=== PATIENT | male | born 1975 | race Caucasian/White ===

== ENCOUNTER 2021-05-07 10:02 | Emergency (ER) | payer BC ==
--- NOTE | 2021-05-07 13:55 | RAD REPORT ---
EXAM DESCRIPTION: CT - Head Brain Wo Cont - 05/07/2021 1:41 pm CLINICAL HISTORY: Fever;Headache COMPARISON: No comparisons TECHNIQUE: Axial 5 mm thick images of the head were obtained without IV contrast. All CT scans are performed using dose optimization technique as appropriate and may include automated exposure control or mA/KV adjustment according to patient size. FINDINGS: No intracranial hemorrhage, mass, edema or shift of mid-line structures. No acute infarcti on changes seen. No abnormal extra-axial fluid collections. Ventricles are normal. Mastoid air cells and visualized portions of the paranasal sinuses are clear. No acute bony findings. IMPRESSION: Negative non-contrast CT head examination.
[2021-05-07 14:10] LABS: Absolute Lymphocytes (CBC) 1.8 K/uL (0.7-4.9); Basophils % 0.2 % (0-1.3); Hematocrit 40.9 % (39.6-49.0); Lymphocytes % 15.9 % (15.3-44.8); MPV 7.5 fL (7.6-11.3); RBC Red Blood Cell Count 4.56 M/uL (4.33-5.43)
[2021-05-07 14:19] LABS: Urine Blood Negative (Negative); Urine Glucose Negative (Negative); Urine Protein Negative (Negative); Urine Specific Gravity 1.025 (1.005-1.030)
[2021-05-07 14:25] LABS: BUN Blood Urea Nitrogen 11 mg/dL (7-18); Bicarbonate 29 mmol/L (21-32); Glucose Level 93 mg/dL (74-106); Potassium 4.1 mmol/L (3.5-5.1); Sodium Level 136 mmol/L (136-145)
[2021-05-07] MEDS ORDERED: NA CHLORIDE 0.9% 1,000 ML ONE (14:25)
[2021-05-07] MEDS ORDERED: METOCLOPRAMIDE 10 MG/2mL INJ ONE (14:25)
[2021-05-07] MEDS ORDERED: DIPHENHYDRAMINE 50 MG/ML VIAL ONE (14:25)
--- NOTE | 2021-05-07 15:10 | EDPHYS ---
Physician Documentation [facility] Name: Huseyin Mejia Age: 45 yrs Sex: Male : 1975 Arrival Date: 05/07/2021 Time: 10:05 Bed 14 Private MD: ED Physician Lavon Agosto HPI: 05/07 14:08 This 45 yrs old Male presents to ER via Ambulatory with complaints of jr8 Headache. 14:08 Onset: The symptoms/episode began/occurred gradually, 1 week(s) ago. Associated signs jr8 and symptoms: Pertinent positives: fever. Severity of symptoms: At its worst the pain was moderate, in the emergency department the pain is unchanged. Headache History: Denies prior headaches. The patient has not experienced similar symptoms in the past. The patient has been recently seen by a physician:. This is a 45-year-old male patient that presented to the emergency room today after being seen by [place] emergency room and primary care over the past week. Patient had Covid test complete amongst flu and strep. All 3 were noted to be negative. Had blood work yesterday which showed mild elevation in white cell count. Still pending a mono spot test. Patient has continued fevers and headache that is not going away. Primary care physician at that time referred patient to emergency room for further evaluation.. Historical: - Allergies: 10:41 No Known Allergies; ca1 - Home Meds: 10:41 None [Active]; ca1 - PMHx: 10:41 None; ca1 - PSHx: 10:41 None; ca1 - Immunization history:: Client reports receiving the 2nd dose of the Covid vaccine, Client reports receiving the 1st dose of the Covid vaccine. - Social history:: Smoking status: Reported history of juuling and/or vaping. ROS: 14:08 Eyes: Negative for injury, pain, redness, and discharge, ENT: Negative for injury, jr8 pain, and discharge, Neck: Negative for injury, pain, and swelling, Cardiovascular: Negative for chest pain, palpitations, and edema, Respiratory: Negative for shortness of breath, cough, wheezing, and pleuritic chest pain, Abdomen/GI: Negative for abdominal pain, nausea, vomiting, diarrhea, and constipation, Back: Negative for injury and pain, MS/Extremity: Negative for injury and deformity, Skin: Negative for injury, rash, and discoloration. 14:08 Constitutional: Positive for fever. 14:08 Neuro: Positive for headache. Exam: 14:08 Constitutional: This is a well developed, well nourished patient who is awake, alert, jr8 and in no acute distress. Eyes: Pupils equal round and reactive to light, extra-ocular motions intact. Lids and lashes normal. Conjunctiva and sclera are non-icteric and not injected. Cornea within normal limits. Periorbital areas with no swelling, redness, or edema. ENT: Nares patent. No nasal discharge, no septal abnormalities noted. Tympanic membranes are normal and external auditory canals are clear. Oropharynx with no redness, swelling, or masses, exudates, or evidence of obstruction, uvula midline. Mucous membranes moist. Neck: Trachea midline, no thyromegaly or masses palpated, and no cervical lymphadenopathy. Supple, full range of motion without nuchal rigidity, or vertebral point tenderness. No Meningismus. Cardiovascular: Regular rate and rhythm with a normal S1 and S2. No gallops, murmurs, or rubs. Normal PMI, no JVD. No pulse deficits. Respiratory: Lungs have equal breath sounds bilaterally, clear to auscultation and percussion. No rales, rhonchi or wheezes noted. No increased work of breathing, no retractions or nasal flaring. Abdomen/GI: Soft, non-tender, with normal bowel sounds. No distension or tympany. No guarding or rebound. No evidence of tenderness throughout. Back: No spinal tenderness. No costovertebral tenderness. Full range of motion. Skin: Warm, dry with normal turgor. Normal color with no rashes, no lesions, and no evidence of cellulitis. MS/ Extremity: Pulses equal, no cyanosis. Neurovascular intact. Full, normal range of motion. Neuro: Awake and alert, GCS 15, oriented to person, place, time, and situation. Cranial nerves II-XII grossly intact. Motor strength 5/5 in all extremities. Sensory grossly intact. Cerebellar exam normal. Normal gait. Vital Signs: 10:37 BP 133 / 75; Pulse 75; Resp 18 S; Temp 98.8(TE); Pulse Ox 97% on R/A; Weight 99.79 kg ca1 (R); Height 6 ft. 2 in. (187.96 cm) (R); Pain 10/10; 10:37 Body Mass Index 28.25 (99.79 kg, 187.96 cm) ca1 MDM: 12:54 Patient medically screened. [facility] 15:04 Data reviewed: vital signs, nurses notes, lab test result(s), radiologic studies, CT jr scan. Data interpreted: Pulse oximetry: on room air is 97 %. Interpretation: normal. Counseling: I had a detailed discussion with the patient and/or guardian regarding: the historical points, exam findings, and any diagnostic results supporting the discharge/admit diagnosis, lab results, radiology results, the need for outpatient follow up, a family practitioner, to return to the emergency department if symptoms worsen or persist or if there are any questions or concerns that arise at home. Response to treatment: the patient's symptoms have mildly improved after treatment, patient is well hydrated. ED course: Jennifer with patient that he has mononucleosis. That for some time he could continue to feel fatigued and may have on and off fevers. Needs to hydrate and rest at home. No activities that could injure his abdomen. The headaches that he has been experiencing may or may not come back. He is to follow-up with family practice. If he feels like he is getting worse come back to the ER for further evaluation. Patient and significant other happy with plan.. 05/07 13:25 Order name: CBC with Diff; Complete Time: 14:17 [facility] 05/07 13:25 Order name: Basic Metabolic Panel; Complete Time: 14:30 [facility] 05/07 13:25 Order name: [place] Screen Profile; Complete Time: 15:04 [facility] 05/07 14:19 Order name: Urine Dipstick-Ancillary; Complete Time: 14:30 [facility] 05/07 15:17 Order name: SARS-COV-2 RT PCR; Complete Time: 15:19 [facility] 05/07 13:25 Order name: IV; Complete Time: 13:53 [facility] 05/07 13:25 Order name: CT Head Brain wo Cont; Complete Time: 14:07 [facility] Administered Medications: 14:11 Drug: NS 0.9% 1000 ml Route: IV; Rate: 1000 ml; Site: right antecubital; ss 15:30 Follow up: IV Status: Completed infusion; IV Intake: 1000ml ss 14:11 Drug: Reglan (metoCLOPramide) 10 mg Route: IVP; Site: right antecubital; ss 15:04 Follow up: Response: No adverse reaction ss 14:11 Drug: Benadryl (diphenhydrAMINE) 25 mg Route: IVP; Site: right antecubital; ss 15:04 Follow up: Response: No adverse reaction; No change in condition ss 15:03 Drug: Ketorolac 30 mg Route: IVP; Site: right antecubital; ss 15:33 Follow up: Response: No adverse reaction; No change in condition ss 15:41 Drug: Dilaudid (HYDROmorphone) 1 mg Route: IVP; Site: right antecubital; ss 15:41 Follow up: Response: Pain is decreased; Pain is decreased, pt reports instant relief ss now 1/10 on pain scale. Disposition: 16:18 Co-signature as Attending Physician, Lavon Agosto MD I agree with the assessment and kdr plan of care. Disposition Summary: 05/07/21 15:09 Discharge Ordered Location: Home jr Problem: new jr8 Symptoms: have improved jr8 Condition: Stable jr8 Diagnosis - Infectious mononucleosis, unspecified without complication jr8 Followup: jr8 - With: Private Physician - When: 5 - 6 days - Reason: Recheck today's complaints, Continuance of care, Re-evaluation by your physician Discharge Instructions: - Discharge Summary Sheet jr8 - Infectious Mononucleosis jr8 Forms: - Medication Reconciliation Form jr8 - Thank You Letter jr8 - Antibiotic Education jr8 - Prescription Opioid Use jr8 Prescriptions: - Fioricet 50-300-40 mg Oral capsule - take 2 capsule by ORAL route every 4 hours; 20 capsule; Refills: 0, Product jr8 Selection Permitted Signatures: Dispatcher [employer] EDGA Lavon Agosto MD MD [facility] Yary Kent RN RN Benny Luna PA PA jr8 Antonia Owen RN RN ca1 Corrections: (The following items were deleted from the chart) 14:19 13:25 CORONAVIRUS+ ordered. EDGA EDMS
--- NOTE | 2021-05-07 15:10 | ER ---
Nurse's Notes [facility] Name: Huseyin Mejia Age: 45 yrs Sex: Male : 1975 Arrival Date: 05/07/2021 Time: 10:05 Bed 14 Private MD: Diagnosis: Infectious mononucleosis, unspecified without complication Presentation: 05/07 10:37 Chief complaint: Spouse and/or significant other states: headache, pain on R side of ca1 face and fever x 1 week. Sent by our doctor for MRI of the head. CT scan of the head was negative and WBC elevated at 12.5. Strep, Flu and Covid were negative, tests done yesterday 05/08/2021. Was given Tramadol for the headache, no relief. Tramadol taken last at 0800 today. Coronavirus screen: Client denies travel out of the [place] in the last 14 days. The client reports previous COVID testing was negative. Date of collection: May 06, 2021. Ebola Screen: Patient negative for fever greater than or equal to 101.5 degrees Fahrenheit, and additional compatible Ebola Virus Disease symptoms Patient denies exposure to infectious person. Patient denies travel to an Ebola-affected area in the 21 days before illness onset. No symptoms or risks identified at this time. Initial Sepsis Screen: Does the patient meet any 2 criteria? No. Patient's initial sepsis screen is negative. Does the patient have a suspected source of infection? No. Patient's initial sepsis screen is negative. Risk Assessment: Do you want to hurt yourself or someone else? Patient reports no desire to harm self or others. Onset of symptoms was May 01, 2021. 10:37 Method Of Arrival: Ambulatory ca1 10:37 Acuity: MIKE 3 ca1 Historical: - Allergies: 10:41 No Known Allergies; ca1 - Home Meds: 10:41 None [Active]; ca1 - PMHx: 10:41 None; ca1 - PSHx: 10:41 None; ca1 - Immunization history:: Client reports receiving the 2nd dose of the Covid vaccine, Client reports receiving the 1st dose of the Covid vaccine. - Social history:: Smoking status: Reported history of juuling and/or vaping. Screenin:05 Abuse screen: Denies threats or abuse. Denies injuries from another. Nutritional ss screening: No deficits noted. Tuberculosis screening: Never had TB. Fall Risk None identified. Assessment: 12:49 General: Appears in no apparent distress. comfortable, Behavior is calm, cooperative. ss Pain: Complains of pain in headache "moves around" Pain currently is 10 out of 10 on a pain scale. Neuro: Level of Consciousness is awake, alert, obeys commands, Oriented to person, place, time, situation, Candy Decorator are equal bilaterally Moves all extremities. Full function Speech is normal, Facial symmetry appears normal, Pupils are PERRLA. Cardiovascular: Capillary refill < 3 seconds is brisk in bilateral. Respiratory: Airway is patent Respiratory effort is even, unlabored, Respiratory pattern is regular, symmetrical. GI: Patient currently denies diarrhea, vomiting. EENT: Nares are clear Oral mucosa is moist. Derm: Skin is intact, is healthy with good turgor, Skin is dry, Skin is pink, warm \\T\\ dry. normal. Musculoskeletal: Circulation, motion, and sensation intact. Range of motion: intact in all extremities, Swelling absent. 15:04 Reassessment: Patient appears in no apparent distress at this time. AGAPITO Zapata at bedside ss updating patient on results and plan of care. Toradol given as ordered as patient denies any improvement in pain. 15:34 Reassessment: No changes from previously documented assessment. AGAPITO Zapata notified that ss pain is unchanged. Dilaudid 1 mg IVP ordered. 15:41 Reassessment: Patient appears in no apparent distress at this time. Patient and/or ss family updated on plan of care and expected duration. Pain level reassessed. Patient is alert, oriented x 3, equal unlabored respirations, skin warm/dry/pink. Pt reports instant relief after Dilaudid administration. Patient states feeling better. Patient states symptoms have improved. Vital Signs: 10:37 BP 133 / 75; Pulse 75; Resp 18 S; Temp 98.8(TE); Pulse Ox 97% on R/A; Weight 99.79 kg ca1 (R); Height 6 ft. 2 in. (187.96 cm) (R); Pain 10/10; 10:37 Body Mass Index 28.25 (99.79 kg, 187.96 cm) ca1 ED Course: 10:05 Patient arrived in ED. mr 10:41 Triage completed. ca1 10:41 Arm band placed on right wrist. ca1 12:54 Roszak, Benny, PA is PHCP. jr8 12:54 Lavon Agosto MD is Attending Physician. jr8 13:27 Yary Kent, JASSI is Primary Nurse. ss 13:41 CT Head Brain wo Cont In Process Unspecified. EDMS 13:53 Inserted saline lock: 20 gauge in right antecubital area, using aseptic technique. ss Blood collected. 15:05 Patient has correct armband on for positive identification. Bed in low position. Call ss light in reach. 15:05 No provider procedures requiring assistance completed. ss 16:11 IV discontinued, intact, bleeding controlled, No redness/swelling at site. Pressure ss dressing applied. Administered Medications: 14:11 Drug: NS 0.9% 1000 ml Route: IV; Rate: 1000 ml; Site: right antecubital; ss 15:30 Follow up: IV Status: Completed infusion; IV Intake: 1000ml ss 14:11 Drug: Reglan (metoCLOPramide) 10 mg Route: IVP; Site: right antecubital; ss 15:04 Follow up: Response: No adverse reaction ss 14:11 Drug: Benadryl (diphenhydrAMINE) 25 mg Route: IVP; Site: right antecubital; ss 15:04 Follow up: Response: No adverse reaction; No change in condition ss 15:03 Drug: Ketorolac 30 mg Route: IVP; Site: right antecubital; ss 15:33 Follow up: Response: No adverse reaction; No change in condition ss 15:41 Drug: Dilaudid (HYDROmorphone) 1 mg Route: IVP; Site: right antecubital; ss 15:41 Follow up: Response: Pain is decreased; Pain is decreased, pt reports instant relief ss now 1/10 on pain scale. Intake: 15:30 IV: 1000ml; Total: 1000ml. ss Outcome: 15:09 Discharge ordered by . jr8 16:11 Discharged to home ambulatory. ss 16:11 Condition: good 16:11 Discharge instructions given to patient, family, Instructed on discharge instructions, follow up and referral plans. medication usage, Demonstrated understanding of instructions, follow-up care, Prescriptions given X 1. 16:11 Patient left the ED. ss Signatures: Dispatcher [facility] Rehman Carrie mr Yary Kent, RN RN ss Benny Luan PA PA jr8 Antonia Owen, RN RN ca1
[2021-05-07] MEDS ORDERED: KETOROLAC 30 MG/ML INJ ONE (15:22)
[2021-05-07] MEDS ORDERED: HYDROMORPHONE HCL 1 MG/ML INJ ONE (15:58)
[2021-05-07 16:16] VITALS: BP 133/75; TEMP 98.8; O2SAT 97
== END 2021-05-07 16:11 | disposition home or self-care (01) ==
LOC: ER 10:02
DX: B27.90 Infectious mononucleosis, unspecified without complication (principal); Z20.822 Contact with and (suspected) exposure to COVID-19
CPT/HCPCS: 96361; 85025; 80048; 36415; 86308; 81003; 70450; 96375; 96374; 99284; U0003; J2765; J1200; J1170; J7030